=== PATIENT | male | born 1940 | race Two or more races ===

== ENCOUNTER 2024-04-26 13:33 | Inpatient (IN) | payer OTHER ==
[~2024-04-26] VITALS: Ht 170.2 cm; Wt 72.5 kg
--- NOTE | 2024-04-26 14:09 | ECG ---
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
[2024-04-26 14:18] LABS: Hematocrit 43.9 % (41.0-53.0); Hemoglobin 14.9 g/dL (13.5-17.5); Mean Corpuscular Hemoglobin 30.4 pg (28.0-32.0); Mean Corpuscular Hgb Conc. 33.8 g/dL (32.0-36.0); Platelet Count (auto) 147 10^3/uL (140-450); Red Blood Cells 4.88 10^6/uL (4.5-5.90); Red Cell Distribution Width 13.7 % (11.8-14.3); White Blood Cell 6.9 10^3/uL (4.4-10.8)
--- NOTE | 2024-04-26 14:20 | DVH ---
CLINICAL INFORMATION: 83 years old, Male; altered mental status. TECHNIQUE: Single AP portable chest radiograph was obtained. COMPARISON: None FINDINGS: Lungs: Scattered areas of subsegmental atelectasis. No dense focal consolidation visualized. Cardiac: Heart size is within normal limits. Pulmonary vasculature: Unremarkable. Mediastinum/erwin: Unremarkable. Bones: No acute osseous abnormality identified. Other: No other significant findings. IMPRESSION: No evidence of acute disease in the chest.
[2024-04-26 14:38] LABS: Alanine Aminotransferase 14 U/L (7-40); Albumin 4.3 g/dL (3.2-4.8); Alkaline Phosphatase 72 U/L (46-116); Anion Gap 6 (5-15); Aspartate Aminotransferase 16 U/L (13-40); BUN/Creatinine Ratio 15.3 (10.0-20.0); Bilirubin, Total 0.5 mg/dL (0.2-1.0); Blood Urea Nitrogen 19 mg/dL (9-23); Calcium 9.7 mg/dL (8.7-10.4); Carbon Dioxide 28 mmol/L (20-31); Glucose 102 mg/dL (74-106); Potassium 4.2 mmol/L (3.5-5.1); Sodium 142 mmol/L (136-145)
[2024-04-26 14:41] LABS: Chloride 108 mmol/L (98-107)
[2024-04-26 14:45] LABS: Band Neutrophils % (manual) 0; Basophils % (manual) 0 (0.0-2.0); Blast Cells 0; Eosinophils % (manual) 0 (0-7); Metamyelocytes % 0; Myelocytes % 0; Promyelocytes % 0; Reactive Lymphocytes 0
[2024-04-26 15:56] LABS: Urine Bacteria None Seen /hpf (None Seen); Urine WBC None Seen /hpf (0 - 3)
--- NOTE | 2024-04-26 16:00 | DVH ---
CLINICAL INFORMATION: 83 years old, Male; altered mental status. Headache. TECHNIQUE: Axial imaging was obtained through the brain without contrast. Coronal and sagittal refor matted images were obtained, reviewed, and stored. Images were reviewed in brain and bone windows. A ll CT scans at this medical facility are performed using dose modulation techniques as appropriate to a performed exam including the following: Automated exposure control was utilized; adjustment of the MA and/or KV according to patient size; and use of iterative reconstruction technique. CTDIvol = 57.92 mGy DLP = 1140.09 mGy-cm COMPARISON: None FINDINGS: There is no acute intracranial hemorrhage or extraaxial fluid collection. No mass effect o r midline shift. Scattered areas of hypoattenuation are seen in the periventricular and subcortical white matter, which are nonspecific but most likely sequelae of small vessel ischemic disease. The calvarium is unremarkable. [id number] mucosal thickening in the paranasal sinuses. Mastoid air cells are clear. IMPRESSION: 1. No CT evidence of acute intracranial abnormality. 2. Nonacute findings as described above.
[2024-04-26 16:09] LABS: Lymphocytes % (manual) 29 (10.0-50.0); Monocytes % (manual) 17 (0-12); Platelet Estimate Adequate
[2024-04-26 16:31] LABS: Urine Blood Negative /uL (Negative); Urine Clarity Clear (Clear); Urine Color Light-Yellow (Yellow); Urine Protein, UAD Negative (Negative); Urine Specific Gravity 1.013 (1.001-1.035); Urine Squamous Epithelial Cell None Seen /hpf (<5); Urine Urobilinogen Normal (Negative)
--- NOTE | 2024-04-26 19:16 | ED.PDOC ---
History of Present Illness HPI Comments 83 y/o M, with a known Hx of HTN and thyroid disease, is BIBA for c/o ALOC, today. Per EMS report, patient's spouse called after finding the patient altered, today, after being lethargic and weak for 1x week. Patient was commented to have been alert to name and date of and found with a blood glucose of 157 by EMS staff on scene. He has no additional reported associated symptoms, currently, with exception on still being altered by EMS. Chief Complaint: ALOC Time Seen by MD: 13:42 Reviewed Notes: Nurses Notes, Medications, Allergies Allergies: Coded Allergies: NO KNOWN ALLERGIES (Unverified , 04/26/24) Information Source: Emergency Med Personnel Mode of Arrival: EMS Severity: Moderate Timing: Days Duration: Since onset Prehospital treatment: 12 Lead EKG, Accucheck (157), [place] Past Medical History PAST MEDICAL HISTORY: HTN, Thyroid Surgical History: Unknown, Unobtainable Family History Family History: Unknown, Unobtainable Social History Smoker: Unknown, Unobtainable Alcohol: Unknown, Unobtainable Drugs: Unknown, Unobtainable Lives In: Home Neurological: reports: others (ALOC) All Other Systems: Reviewed and Negative (negative unless otherwise stated above or in HPI) Physical Exam General Appearance: Other (Chronically ill-appearing) HEENT: NOT DONE Neck: NOT DONE Respiratory: Other (Crackles bilaterally) Cardiovascular: Tachycardia Breast Exam: Deferred Gastrointestinal: Non Tender Genitalia: Deferred Pelvic: Deferred Rectal: Deferred Extremities: Non-tender Neurologic: Disoriented Cerebellar Function: NOT DONE Reflexes: NOT DONE Skin: Dry, Normal Color, Warm Lymphatic: No Adenopathy Was a procedure done? Was a procedure done?: No EKG EKG : Pulse Rate (adult): 70 [place]: Normal Cardiac Rhythm: NSR, PAC's Block: None Hypertrophy: LVH ST: Normal Differential Dx Considerations may include: encephalopathy, electrolyte imbalance, dehydration, UTI X-Ray, Labs, Meds, VS Vital Signs Date Time Temp Pulse Resp B/P (MAP) Pulse Ox O2 Delivery O2 Flow Rate FiO2 04/26/24 19:16 70 04/26/24 18:09 141/69 (93) 04/26/24 14:16 Room Air* 0 21 04/26/24 14:15 98.1 67 19 150/86 (107) 95 98.1 04/26/24 14:08 70 04/26/24 13:35 97.9 65 18 131/90 (104) 98 Lab Test 04/26/24 15:45 04/26/24 14:51 04/26/24 13:57 Range/Units Urine Color Light-yellow Yellow Urine Clarity Clear Clear Urine pH 6.0 5.0-9.0 Urine Specific [place] 1.013 1.001-1.035 Urine Protein Negative Negative Urine Ketones Negative Negative Urine Blood Negative Negative /uL Urine Nitrite Negative Negative Urine Bilirubin Negative Negative Urine Urobilinogen Normal Negative mg/dL Urine Leukocyte Esterase Negative Negative /uL Urine RBC <1 0 - 3 /hpf Urine WBC None seen 0 - 3 /hpf Urine Squamous Epithelial Cells None seen <5 /hpf Urine Bacteria None seen None Seen /hpf Urine Glucose Normal Normal mg/dL Troponin I High Sensitivity 7 7 </=54 ng/L White Blood Count 6.9 4.4-10.8 10^3/uL Red Blood Count 4.88 4.5-5.90 10^6/uL Hemoglobin 14.9 13.5-17.5 g/dL Hematocrit 43.9 41.0-53.0 % Mean Corpuscular Volume 90.0 80.0-100.0 fL Mean Corpuscular Hemoglobin 30.4 28.0-32.0 pg Mean Corpuscular Hemoglobin Concent 33.8 32.0-36.0 g/dL Red Cell Distribution Width 13.7 11.8-14.3 % Platelet Count 147 140-450 10^3/uL Mean Platelet Volume 9.7 6.9-10.8 fL Neutrophils (%) (Auto) 37.0-80.0 % Lymphocytes (%) (Auto) 10.0-50.0 % Monocytes (%) (Auto) 0.0-12.0 % Basophils (%) (Auto) 0.0-2.0 % Neutrophils # (Auto) 1.6-8.6 10 ^3/uL Lymphocytes # (Auto) 0.4-5.4 10 ^3/uL Monocytes # (Auto) 0-1.3 10 ^3/uL Differential Total Cells Counted 100.0 100 Neutrophils % (Manual) 54 37.0-80.0 Band Neutrophils % (Manual) 0 Lymphocytes % (Manual) 29 10.0-50.0 Monocytes % (Manual) 17 H 0-12 Eosinophils % (Manual) 0 0-7 Basophils % (Manual) 0 0.0-2.0 Metamyelocytes % (manual) 0 Myelocytes % (Manual) 0 Promyelocytes % (Manual) 0 Blast Cells % (Manual) 0 Reactive Lymphocytes 0 Platelet Estimate Adequate Sodium Level 142 136-145 mmol/L Potassium Level 4.2 3.5-5.1 mmol/L Chloride Level 108 H 98-107 mmol/L Carbon Dioxide Level 28 20-31 mmol/L Anion Gap 6 5-15 Blood Urea Nitrogen 19 9-23 mg/dL Creatinine 1.24 0.700-1.30 mg/dL Glomerular Filtration Rate Calc 58 >90 mL/min BUN/Creatinine Ratio 15.3 10.0-20.0 Serum Glucose 102 74-106 mg/dL Calcium Level 9.7 8.7-10.4 mg/dL Total Bilirubin 0.5 0.2-1.0 mg/dL Aspartate Amino Transferase (AST) 16 13-40 U/L Alanine Aminotransferase (ALT) 14 7-40 U/L Alkaline Phosphatase 72 46-116 U/L Total Protein 7.0 5.7-8.2 g/dL Albumin 4.3 3.2-4.8 g/dL [place] [address] Ph: [phone] DIAGNOSTIC IMAGING Diagnostic Imaging Report : [id number] Signed PATIENT: BELTRAN MELARA ACCT: [id number] UNIT: [id number] : 1940 LOC: ER ROOM / BED: / AGE / SEX: 83 / M ADM STATUS: REG ER SERVICE 1342 ORDERING PHYSICIAN: ANURAG ENRIQUEZ MD PROCEDURE(s): HWOCT - HEAD WITHOUT CONTRAST REASON: [facility] ORDER NUMBER(s): [id number], ACCESSION NUMBER(s): [id number] CLINICAL INFORMATION: 83 years old, Male; altered mental status. Headache. TECHNIQUE: Axial imaging was obtained through the brain without contrast. Coronal and sagittal reformatted images were obtained, reviewed, and stored. Images were reviewed in brain and bone windows. All CT scans at this medical facility are performed using dose modulation techniques as appropriate to a performed exam including the following: Automated exposure control was utilized; adjustment of the MA and/or KV according to patient size; and use of iterative reconstruction technique. CTDIvol = 57.92 mGy DLP = 1140.09 mGy-cm COMPARISON: None FINDINGS: There is no acute intracranial hemorrhage or extraaxial fluid collection. No mass effect or midline shift. Scattered areas of hypoattenuation are seen in the periventricular and subcortical white matter, which are nonspecific but most likely sequelae of small vessel ischemic disease. The calvarium is unremarkable. Oixp-cg-[id number] mucosal thickening in the paranasal sinuses. Mastoid air cells are clear. IMPRESSION: 1. No CT evidence of acute intracranial abnormality. 2. Nonacute findings as described above. ATED BY: VINOD CARSON DO DICTATED DATE/TIME: 04/26/24 1558 SIGNED BY: VINOD CARSON DO SIGNED DATE/TIME: 04/26/24 155 CC: [place] [address] Ph: [phone] DIAGNOSTIC IMAGING Diagnostic Imaging Report : [id number] Signed PATIENT: BLETRAN MELARA ACCT: [id number] UNIT: [id number] : 1940 LOC: ER ROOM / BED: / AGE / SEX: 83 / M ADM STATUS: REG ER SERVICE 134 ORDERING PHYSICIAN: ANURAG ENRIQUEZ MD PROCEDURE(s): CXRP - CHEST PORTABLE REASON: [facility] ORDER NUMBER(s): [id number], ACCESSION NUMBER(s): [id number] CLINICAL INFORMATION: 83 years old, Male; altered mental status. TECHNIQUE: Single AP portable chest radiograph was obtained. COMPARISON: None FINDINGS: Lungs: Scattered areas of subsegmental atelectasis. No dense focal consolidation visualized. Cardiac: Heart size is within normal limits. Pulmonary vasculature: Unremarkable. Mediastinum/erwin: Unremarkable. Bones: No acute osseous abnormality identified. Other: No other significant findings. IMPRESSION: No evidence of acute disease in the chest. ATED BY: VINOD CARSON DO DICTATED DATE/TIME: 04/26/24 1418 SIGNED BY: VINOD CARSON DO SIGNED DATE/TIME: 04/26/24 1418 CC: Time of 1ST Reevaluation: 14:22 Reevaluation 1ST: Unchanged Patient Education/Counseling: Other (patient is altered ) Family Education/Counseling: Diagnosis, Treatment Additional Information - I reviewed the following notes from patient's past medical encounters: - The following tests were ordered, and results were reviewed by me: TROPONIN, CMP, CBC, UA, EKG, CXR, CT HEAD - Additional information was gathered from interviewing the following independent Historian: EMT - I reviewed and agreed with the following test results read by other provider: CXR, CT HEAD - I discussed treatments and results with medical personnel and: family Departure 1 Departure Time of Disposition: 20:52 (Patient with a worsening altered mental status. CT and labs are benign. We will admit patient for further workup) Impression: Primary Impression: Metabolic encephalopathy Additional Impression: Generalized weakness Disposition: ADMITTED INPATIENT Admit to: Med Surg Condition: Serious Critical Care Note Critical Care Time?: No Stability Stability form required: No Heart Score Heart Score: Heart Score Response (Comments) Value History N/A 0 EKG N/A 0 Age N/A 0 Risk Factors N/A 0 Troponin N/A 0 Total 0 I personally scribed for ANURAG ENRIQUEZ MD ([email or web address]) on 04/26/24 at 19:16. Electronically submitted by Alban Valle [email or web address]). ANURAG ENRIQUEZ MD Apr 26, 2024 19:16
[2024-04-26 20:15] VITALS: PULSE 63; RESP 18; O2SAT 86
[2024-04-27] VITALS (8 sets, daily range): BP systolic 156–183; BP diastolic 84–96; PULSE 57–68; RESP 16–18; TEMP 97.6–98.8; O2SAT 96–99
[2024-04-27] MEDS ORDERED: ACETAMINOPHEN 325 MG TAB PO PRN (01:15)
--- NOTE | 2024-04-27 01:17 | DVHHP2 ---
Admitting Diagnosis: metabolic encephalopathy, ALOC, Generalized weakness History of Present Illness History Source: Patient Exam Limitations: Other (confused ) HPI Mr. Javier Borrero is an 83 yo male , with a known history of hypertension and thyroid disease, presents with a chief complaint of ALOC, today. Per ED notes patient's spouse called 911 after finding the patient altered yesterday, after being lethargic and weak for 1x week. Patient alert and oriented x2 denies any headaches, dizziness, blurry vision, head trauma, chest pain, dyspnea. Patient admitted for further evaluation. Home Meds Reported Medications Pantoprazole Sodium Sesquihydr (Protonix) 40 Mg Tab, 40 MG PO DAILY, #30 TAB 04/27/24 Levothyroxine Sodium (Levothyroxine Sodium) 50 Mcg Tab, 50 MCG PO QAM, TAB 04/27/24 Simvastatin (Simvastatin) 10 Mg Tab, 5 MG PO HS for 30 Days, MG 04/27/24 Finasteride (Finasteride) 5 Mg Tab, 5 MG PO QAM for 30 Days, MG 04/27/24 Losartan Potassium (Losartan Potassium) 50 Mg Tab, 50 MG PO BID for 30 Days, MG 04/27/24 Discontinued Reported Medications Levothyroxine Sodium (Levothyroxine Sodium) 25 Mcg Tab, 25 MCG PO QAM, MCG 04/27/24 Past Medical History Cardiac: HTN Pulmonary: No pertinent Hx Central Nervous System: No pertinent Hx GI: No pertinent Hx Hemotology/Oncology: No pertinent Hx Hepatobiliary: No pertinent Hx Psychiatric: No pertinent Hx Musculoskeletal: No pertinent Hx Rheumotologic: No pertinent Hx Infectious Disease: No peritnent Hx ENT: No pertinent Hx Renal/: No pertinent Hx Endocrine: Hypothyroidism Dermatology: No pertinent Hx Smoker: No Hx (Negative) Alocohol: None Drugs: None Lives with: With family ( Ai ) Domestic Violence: Neg Review of Systems Constitutional: No symptom reported Ears, Nose, & Throat: No symptom reported Eyes: No symptom reported Pulmonary/Respiratory: No symptom reported Cardiovascular: No symptom reported Gastrointestinal: No symptom reported Genitourinary: No symptom reported Musculoskeletal: No symptom reported Skin: No symptom reported Psychiatric: No symptom reported Endocrine: No symptom reported Hemotologic/Lymphatic: No symptom reported H&P Exam Vital Signs Vital Signs Date Time Temp Pulse Resp B/P (MAP) Pulse Ox O2 Delivery O2 Flow Rate FiO2 04/27/24 00:00 61 04/26/24 20:15 18 86 Room Air* 0 21 04/26/24 20:00 98.1 148/84 (105) 98.1 General Appeara: Well developed, Well nourished, Normal Appearance Head Exam: Normal inspection Neck Exam: Normal inspection, Non-tender, Normal alignment Eye Exam: bilateral eye Normal inspection, bilateral eye PERRL, bilateral eye EOMI Ear Exam: bilateral ear Auricle normal Nasal Exam: Normal inspection Mouth: Normal Inspection Pulmonary/Respiratory: Normal inspection, Normal breath sounds, Chest non- tender, Lungs clear Cardiovascular/Chest: Normal inspection, Regular rate, Normal Rhythm Peripheral Pulses: 2+ dorsalis pedis (R), 2+ dorsalis pedis (L), 2+ Radial (R), 2+ Radial (L) Abdominal Exam: Normal bowel sounds, Soft, No tenderness Rectal Exam: Deferred Back Exam: Normal inspection Male Genital 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: Normal hearing, Normal speech, PERRL Motor/Sensory: Normal sensory function, Normal motor function Neuro/Mental St: Alert, Oriented (x2) Appearance: Appropriate appearance, Memory impairment Eye contact/ Speech: Cooperative, Good eye contact, Normal speech Thoughts/Psych: Normal thought pattern Skin Exam: Normal inspection, Normal color, Warm/dry Labs/Xrays Labs Test 04/26/24 15:45 04/26/24 14:51 04/26/24 13:57 Range/Units Urine Color Light-yellow Yellow Urine Clarity Clear Clear Urine pH 6.0 5.0-9.0 Urine Specific [place] 1.013 1.001-1.035 Urine Protein Negative Negative Urine Ketones Negative Negative Urine Blood Negative Negative /uL Urine Nitrite Negative Negative Urine Bilirubin Negative Negative Urine Urobilinogen Normal Negative mg/dL Urine Leukocyte Esterase Negative Negative /uL Urine RBC <1 0 - 3 /hpf Urine WBC None seen 0 - 3 /hpf Urine Squamous Epithelial Cells None seen <5 /hpf Urine Bacteria None seen None Seen /hpf Urine Glucose Normal Normal mg/dL Troponin I High Sensitivity 7 </=54 ng/L White Blood Count 6.9 4.4-10.8 10^3/uL Red Blood Count 4.88 4.5-5.90 10^6/uL Hemoglobin 14.9 13.5-17.5 g/dL Hematocrit 43.9 41.0-53.0 % Mean Corpuscular Volume 90.0 80.0-100.0 fL Mean Corpuscular Hemoglobin 30.4 28.0-32.0 pg Mean Corpuscular Hemoglobin Concent 33.8 32.0-36.0 g/dL Red Cell Distribution Width 13.7 11.8-14.3 % Platelet Count 147 140-450 10^3/uL Mean Platelet Volume 9.7 6.9-10.8 fL Neutrophils (%) (Auto) 37.0-80.0 % Lymphocytes (%) (Auto) 10.0-50.0 % Monocytes (%) (Auto) 0.0-12.0 % Basophils (%) (Auto) 0.0-2.0 % Neutrophils # (Auto) 1.6-8.6 10 ^3/uL Lymphocytes # (Auto) 0.4-5.4 10 ^3/uL Monocytes # (Auto) 0-1.3 10 ^3/uL Differential Total Cells Counted 100.0 100 Neutrophils % (Manual) 54 37.0-80.0 Band Neutrophils % (Manual) 0 Lymphocytes % (Manual) 29 10.0-50.0 Monocytes % (Manual) 17 H 0-12 Eosinophils % (Manual) 0 0-7 Basophils % (Manual) 0 0.0-2.0 Metamyelocytes % (manual) 0 Myelocytes % (Manual) 0 Promyelocytes % (Manual) 0 Blast Cells % (Manual) 0 Reactive Lymphocytes 0 Platelet Estimate Adequate Sodium Level 142 136-145 mmol/L Potassium Level 4.2 3.5-5.1 mmol/L Chloride Level 108 H 98-107 mmol/L Carbon Dioxide Level 28 20-31 mmol/L Anion Gap 6 5-15 Blood Urea Nitrogen 19 9-23 mg/dL Creatinine 1.24 0.700-1.30 mg/dL Glomerular Filtration Rate Calc 58 >90 mL/min BUN/Creatinine Ratio 15.3 10.0-20.0 Serum Glucose 102 74-106 mg/dL Calcium Level 9.7 8.7-10.4 mg/dL Total Bilirubin 0.5 0.2-1.0 mg/dL Aspartate Amino Transferase (AST) 16 13-40 U/L Alanine Aminotransferase (ALT) 14 7-40 U/L Alkaline Phosphatase 72 46-116 U/L Total Protein 7.0 5.7-8.2 g/dL Albumin 4.3 3.2-4.8 g/dL Assessment/Plan Problem List: (1) Altered mental status (2) Metabolic encephalopathy (3) Generalized weakness Plan 83 yo male with a history of thyroid disease, and hypertension presents to the ospital with altered mental status and generalized weakness. 1. Altered mental status 2. Metabolic encephalopathy 3. generalized weakness PLAN Admit Telemetry Cardiology consultation, 2D echo, ASA MRI Brain wo PT evaluation Fall Precautions Vitamin B 12, Ammonia level Discussed all above with patient who verbalized agreement and understanding of care plan. All questions were answered. Discussed assessment and care plan with supervising MD. Plan discussed with: Patient, Other Code Visit Code Visit Total Time (mins): 45 Additional Comments Additional Comments Additional Comments Patient is seen and evaluated by me this afternoon. Patient's chart is reviewed and discussed with the nurse practitioner. Patient is evaluated and admitted by nurse practitioner this morning. I agree with her evaluation, documentation, assessment and care plan as outlined. JUDE MALIN Apr 27, 2024 01:17 FIDEL ALAN MD Apr 27, 2024 16:42
[2024-04-27] MEDS: hydrALAZINE HCL 20 MG/ML VL IV PRN (04:56)
[2024-04-27] MEDS: ASPirin 81 mg TAB PO SCH (09:19)
[2024-04-27] MEDS: FAMOTIDINE 20 MG TAB PO SCH (09:20)
[2024-04-27] MEDS ORDERED: SIMV10TA20 PO (09:50)
[2024-04-27] MEDS ORDERED: FINA5TAB4 PO (09:50)
[2024-04-27] MEDS ORDERED: LEVO25TA6 PO (09:50)
[2024-04-27] MEDS ORDERED: LOSA-534 PO (09:50)
[2024-04-27] MEDS: OPTISON 3ml Vial for INJ IV ONE (11:00)
[2024-04-27] MEDS ORDERED: PANT40TA2 PO (11:48)
[2024-04-27] MEDS ORDERED: LEVO50TA7 PO (11:48)
--- NOTE | 2024-04-27 13:05 | DVH ---
PROCEDURE: MRI BRAIN HEAD WO CONTRAST INDICATION: altered EXAM DATE: 04/27/2024 12:26 PM COMPARISON: CT study of 04/26/2024 TECHNIQUE: MRI of the brain without intravenous contrast. FINDINGS: Diffusion weighted images of the brain demonstrate restricted diffusion in the thalamus on the left s rachana on axial image 12, series 6. Corresponding ADC map demonstrates subtle diminished signal axial im age 12, series 7. Findings consistent with a very small SUBCENTIMETER acute lacunar infarct. Focal ol d ischemic changes seen in the ponds to the right of midline. No intracranial hemorrhage or extra-axi al fluid collections. No subdural hematoma. No hydrocephalus. Cavernous sinuses are symmetric and unr emarkable. Orbits are normal. No fluid in the mastoid air cells. Calvarium is intact. Normal pituitary gland. IMPRESSION: 1. Acute 9 mm left thalamic lacunar infarct. 2. Small focal area of old schema in the right side of the ponds. 3. Mild guadarrama sinusitis, chronic in nature.
[2024-04-27] MEDS: CLOPIDOGREL BISULFATE 75 MG TAB PO ONE (14:15)
[2024-04-27 17:31] LABS: Triglycerides 81 mg/dL (< 150)
[2024-04-27 17:33] LABS: HDL Cholesterol 55 mg/dL (40-59)
[2024-04-27 17:34] LABS: Cholesterol 158 mg/dL (< 200)
[2024-04-27 17:38] LABS: LDL Cholesterol 101 mg/dL (< 100)
[2024-04-27] MEDS: ATORVASTATIN 20 MG TAB PO SCH (21:47)
[2024-04-27] MEDS: LOSARTAN POTASSIUM 50 MG TAB PO SCH (21:47)
[2024-04-27] MEDS ORDERED: IOHEXOL 350 MG/ML 100ML IJ ONE (22:45)
[2024-04-28] VITALS (8 sets, daily range): BP systolic 122–177; BP diastolic 67–103; PULSE 51–98; RESP 14–20; TEMP 97.7–98.5; O2SAT 96–98
[2024-04-28] MEDS: LEVOTHYROXINE SODIUM 50 MCG TAB PO SCH (05:57)
[2024-04-28] MEDS: PANTOPRAZOLE 40 MG TAB PO SCH (05:57)
--- NOTE | 2024-04-28 09:00 | DVH ---
CLINICAL INFORMATION: 83 years old, Male; stroke. TECHNIQUE: Axial noncontrast CT images of the head were obtained. Subsequently, axial CTA images of t he head and neck were obtained after the uneventful administration of 100 mL Omnipaque 350 IV contras t. Coronal and sagittal reformatted images and MIP images were obtained, reviewed, and stored. Measur ements of carotid stenosis are made per NASCET criteria. All CT scans at this medical facility are pe rformed using dose modulation techniques as appropriate to a performed exam including the following: Automated exposure control was utilized; adjustment of the MA and/or KV according to patient size; an d use of iterative reconstruction technique. CTDIvol = 0.07, 0.07, 54.03, 25.88, 22.38 mGy DLP = 1702.03 mGy-cm COMPARISON: None FINDINGS: NONCONTRAST CT HEAD: No acute intracranial hemorrhage. No mass effect or midline shift. Ventricles, sulci, and basal cisterns are within normal limits for age. Scattered areas of hypoattenuation are se en in the periventricular and subcortical white matter, which are nonspecific but most likely sequela e of small vessel ischemic disease. Vague small focus of hypoattenuation in the anterior aspect of th e left thalamus from the recent lacunar infarct. Mild mucosal thickening and partial opacification of the paranasal sinuses. Mastoid air cells are clear. Calvarium is unremarkable. CTA HEAD: origin of the left posterior cerebral artery incidentally noted. Posterior cerebral a rteries, basilar artery, and intracranial segments of the distal vertebral arteries are otherwise nor mal in caliber and course with no evidence of aneurysm, large vessel occlusion, significant stenosis, or vascular malformation. There is moderate narrowing at the proximal aspect of the M2 segment of th e left middle cerebral artery (series 5 images 189-191 and correlating with series 604 images 38-40 a nd series 607 images 76-78). Right MCA is patent with no evidence of large vessel occlusion, focal st enosis, or aneurysm. The anterior cerebral arteries and intracranial segments of the distal internal carotid arteries are normal in caliber and course with no evidence of aneurysm, large vessel occlusi on, significant stenosis, or vascular malformation. CTA NECK: Normal configuration of the aortic arch with patent origins of the brachiocephalic artery, left common carotid artery, and left subclavian artery. Subclavian arteries are patent with no signif icant stenosis. Mild calcified plaque of the right carotid bifurcation without significant stenosis. The bilateral common carotid, internal carotid, and external carotid arteries are otherwise patent wi th no significant stenosis or evidence of dissection. Vertebral arteries are patent with no significa nt stenosis or evidence of dissection. IMPRESSION: 1. No acute intracranial hemorrhage. 2. Vague area of hypoattenuation in the anterior aspect of the left thalamus corresponding to the loc ation of the acute / subacute lacunar infarct seen on MRI. 3. Moderate narrowing of the proximal M2 segment of the left MCA. Otherwise no evidence of aneurysm, large vessel occlusion, or vascular malformation identified on CTA head exam. 4. CTA neck demonstrates no evidence of carotid or vertebral dissection or significant stenosis. 5. Additional findings as detailed above.
[2024-04-28] MEDS: FINASTERIDE 5 MG TAB PO SCH (09:45)
[2024-04-28] MEDS: CLOPIDOGREL BISULFATE 75 MG TAB PO SCH (09:45)
--- NOTE | 2024-04-28 17:17 | DVHPN2 ---
Progress Note - Dictate Date Seen: Apr 28, 2024 Medical Necessity Reason Pt with a Central, PICC or Fol: No Subjective Mentation is normal today. His visited him today. CT angiogram of the head and neck does not show any acute significant pathology. Patient feels better. Ambulating on his own. vital signs Vital Sign Date Time Temp Pulse Resp B/P (MAP) Pulse Ox O2 Delivery O2 Flow Rate FiO2 04/28/24 16:55 171/105 04/28/24 04:41 97.7 96 17 98 97.7 04/27/24 20:00 Room Air* 0 21 Total Intake and Output 04/27/24 04/27/24 04/28/24 15:00 23:00 07:00 Intake Total 1320 ml 444 ml Output Total 1000 ml 4 ml Balance 320 ml 440 ml medications Current Medications Medications Dose Ordered Sig/Jose Route Start Time Stop Time Status Last Admin Dose Admin Ondansetron HCl 4 mg Q6HPRN PRN IV 04/27/24 01:15 Aspirin 81 mg DAILY PO 04/27/24 10:00 04/28/24 09:45 81 MG Acetaminophen 650 mg Q6HPRN PRN PO 04/27/24 01:15 Hydralazine HCl 10 mg Q6HP PRN IV 04/27/24 04:45 04/28/24 16:55 10 MG Clopidogrel Bisulfate 75 mg DAILY PO 04/28/24 10:00 04/28/24 09:45 75 MG Pantoprazole Sodium 40 mg DAILY@0600 PO 04/28/24 06:00 04/28/24 05:57 40 MG Levothyroxine Sodium 50 mcg QAM@0600 PO 04/28/24 06:00 04/28/24 05:57 50 MCG Finasteride 5 mg DAILY PO 04/28/24 10:00 04/28/24 09:45 5 MG Atorvastatin Calcium 40 mg HS PO 04/27/24 22:00 04/27/24 21:47 40 MG Losartan Potassium 50 mg BID PO 04/27/24 22:00 04/28/24 09:45 50 MG Hydrochlorothiazide 12.5 mg BID PO 04/28/24 22:00 objective Alert awake oriented x3. HEENT neck supple no JVD. Heart regular rate and rhythm S1 and S2. Lungs without rales wheezes. Abdomen soft positive bowel sounds. Extremities no edema. Neurologic no focal deficits noted laboratory and microbiology Laboratory Tests 04/26/24 13:57 Test 04/26/24 13:57 Range/Units Serum Glucose 102 74-106 mg/dL Assessment/Plan Continue dual antiplatelet therapy and statin as he is on. We will adjust his blood pressure medication given blood pressure in the high range. Otherwise continue rest of supportive care and treatment monitor him overnight. If he remains stable consider discharge home tomorrow. Discussed with the patient regarding care plan at bedside. Problems(with codes): (1) Generalized weakness (2) Metabolic encephalopathy (3) Lacunar infarct, acute Plan discussed with: Other FIDEL ALAN MD Apr 28, 2024 17:17
[2024-04-28] MEDS: ONDANSETRON HCL 4 MG/2 ML VIAL IV PRN (19:47)
[2024-04-28] MEDS: hydroCHLOROthiazide 25 MG TAB PO SCH (21:21)
[2024-04-29 01:00] VITALS: BP 151/90; PULSE 74; RESP 14; TEMP 98.4; O2SAT 98
[2024-04-29 05:00] VITALS: BP 133/64; PULSE 70; RESP 14; TEMP 98.3; O2SAT 98
[2024-04-29 08:00] VITALS: PULSE 59; PULSE 69; RESP 18; O2SAT 98
[2024-04-29 09:21] VITALS: BP 143/83; PULSE 69; RESP 18; TEMP 97.5; O2SAT 98
[2024-04-29 12:53] VITALS: BP 154/88; PULSE 64; RESP 17; TEMP 97.7; O2SAT 99
[2024-04-29] MEDS ORDERED: LOSA-534 PO (14:47)
[2024-04-29] MEDS ORDERED: LISI20TA56 PO (14:47)
[2024-04-29] MEDS ORDERED: CLOP75TA70 PO (14:47)
[2024-04-29] MEDS ORDERED: HYDR25TA5 PO (14:47)
[2024-04-29] MEDS ORDERED: ASPI-316 PO (14:47)
--- NOTE | 2024-04-29 14:49 | DVHDS2 ---
Discharge Summary Date of Admission Apr 27, 2024 at 01:06 Date of Discharge: Apr 29, 2024 Labs/Diagnostic Data: Laboratory Results Test 04/27/24 17:57 04/27/24 01:24 04/26/24 15:45 04/26/24 14:51 Hemoglobin A1c 5.5 % A1C (<5.7) Ammonia 22 umol/L (11-32) Triglycerides Level 81 mg/dL (< 150) Cholesterol Level 158 mg/dL (< 200) LDL Cholesterol 101 mg/dL (< 100) HDL Cholesterol 55 mg/dL (40-59) Vitamin B12 Level 1314 pg/mL (211-911) Thyroid Stimulating Hormone (TSH) 0.81 uIU/mL (0.55-4.78) Urine Color Light-yellow (Yellow) Urine Clarity Clear (Clear) Urine pH 6.0 (5.0-9.0) Urine Specific [place] 1.013 (1.001-1.035) Urine Protein Negative (Negative) Urine Ketones Negative (Negative) Urine Blood Negative /uL (Negative) Urine Nitrite Negative (Negative) Urine Bilirubin Negative (Negative) Urine Urobilinogen Normal mg/dL (Negative) Urine Leukocyte Esterase Negative /uL (Negative) Urine RBC <1 /hpf (0 - 3) Urine WBC None seen /hpf (0 - 3) Urine Squamous Epithelial Cells None seen /hpf (<5) Urine Bacteria None seen /hpf (None Seen) Urine Glucose Normal mg/dL (Normal) Troponin I High Sensitivity 7 ng/L (</=54) Test 04/26/24 13:57 White Blood Count 6.9 10^3/uL (4.4-10.8) Red Blood Count 4.88 10^6/uL (4.5-5.90) Hemoglobin 14.9 g/dL (13.5-17.5) Hematocrit 43.9 % (41.0-53.0) Mean Corpuscular Volume 90.0 fL (80.0-100.0) Mean Corpuscular Hemoglobin 30.4 pg (28.0-32.0) Mean Corpuscular Hemoglobin Concent 33.8 g/dL (32.0-36.0) Red Cell Distribution Width 13.7 % (11.8-14.3) Platelet Count 147 10^3/uL (140-450) Mean Platelet Volume 9.7 fL (6.9-10.8) Neutrophils (%) (Auto) % (37.0-80.0) Lymphocytes (%) (Auto) % (10.0-50.0) Monocytes (%) (Auto) % (0.0-12.0) Basophils (%) (Auto) % (0.0-2.0) Neutrophils # (Auto) 10 ^3/uL (1.6-8.6) Lymphocytes # (Auto) 10 ^3/uL (0.4-5.4) Monocytes # (Auto) 10 ^3/uL (0-1.3) Differential Total Cells Counted 100.0 (100) Neutrophils % (Manual) 54 (37.0-80.0) Band Neutrophils % (Manual) 0 Lymphocytes % (Manual) 29 (10.0-50.0) Monocytes % (Manual) 17 (0-12) Eosinophils % (Manual) 0 (0-7) Basophils % (Manual) 0 (0.0-2.0) Metamyelocytes % (manual) 0 Myelocytes % (Manual) 0 Promyelocytes % (Manual) 0 Blast Cells % (Manual) 0 Reactive Lymphocytes 0 Platelet Estimate Adequate Sodium Level 142 mmol/L (136-145) Potassium Level 4.2 mmol/L (3.5-5.1) Chloride Level 108 mmol/L (98-107) Carbon Dioxide Level 28 mmol/L (20-31) Anion Gap 6 (5-15) Blood Urea Nitrogen 19 mg/dL (9-23) Creatinine 1.24 mg/dL (0.700-1.30) Glomerular Filtration Rate Calc 58 mL/min (>90) BUN/Creatinine Ratio 15.3 (10.0-20.0) Serum Glucose 102 mg/dL (74-106) Calcium Level 9.7 mg/dL (8.7-10.4) Total Bilirubin 0.5 mg/dL (0.2-1.0) Aspartate Amino Transferase (AST) 16 U/L (13-40) Alanine Aminotransferase (ALT) 14 U/L (7-40) Alkaline Phosphatase 72 U/L (46-116) Total Protein 7.0 g/dL (5.7-8.2) Albumin 4.3 g/dL (3.2-4.8) Other Laboratory Tests 04/26/24 13:57 Brief Hx & Hospital Course: 83 y/o M, with a known Hx of HTN and thyroid disease, is BIBA for c/o ALOC, today. Per EMS report, patient's spouse called after finding the patient altered, today, after being lethargic and weak for 1x week. Patient was commented to have been alert to name and date of and found with a blood glucose of 157 by EMS staff on scene. He has no additional reported associated symptoms, currently, with exception on still being altered by EMS. He is admitted and underwent a further evaluations. His blood pressure has been controlled with adjusting BP medications. Patient's VT did confirm a thalamic stroke. CT angiogram of the head and neck did not show any significant stenosis. Patient and his counseled and educated regarding aggressive risk factor modification including good blood pressure control to prevent secondary strokes. Patient started on antiplatelet therapy and statin. Patient's mentation is back to baseline normal status. His blood pressure is improved. He is feeling better. Therefore it is felt he could be safely discharged home with close outpatient follow up with the PCP and neurologist as mentioned. I have talked with the patient as well as his over the phone regarding her hospital diagnosis, treatment he received, discharge medications, discharge instructions and follow-up plan of care. They have verbalized understanding of these and agree with the discharge care plan. Consults/Reason for consult CT angio of head and neck IMPRESSION: 1. No acute intracranial hemorrhage. 2. Vague area of hypoattenuation in the anterior aspect of the left thalamus corresponding to the location of the acute / subacute lacunar infarct seen on MRI. 3. Moderate narrowing of the proximal M2 segment of the left MCA. Otherwise no evidence of aneurysm, large vessel occlusion, or vascular malformation identified on CTA head exam. 4. CTA neck demonstrates no evidence of carotid or vertebral dissection or significant stenosis. 5. Additional findings as detailed above. Operations or Procedures PROCEDURE: MRI BRAIN HEAD WO CONTRAST INDICATION: altered EXAM DATE: 04/27/2024 12:26 PM COMPARISON: CT study of 04/26/2024 TECHNIQUE: MRI of the brain without intravenous contrast. FINDINGS: Diffusion weighted images of the brain demonstrate restricted diffusion in the thalamus on the left side on axial image 12, series 6. Corresponding ADC map demonstrates subtle diminished signal axial image 12, series 7. Findings consistent with a very small SUBCENTIMETER acute lacunar infarct. Focal old ischemic changes seen in the ponds to the right of midline. No intracranial hemorrhage or extra-axial fluid collections. No subdural hematoma. No hydrocephalus. Cavernous sinuses are symmetric and unremarkable. Orbits are normal. No fluid in the mastoid air cells. Calvarium is intact. Normal pituitary gland. IMPRESSION: 1. Acute 9 mm left thalamic lacunar infarct. 2. Small focal area of old schema in the right side of the ponds. 3. Mild guadarrama sinusitis, chronic in nature. Condition at Discharge: Stable Final Diagnosis/Problems List Acute thalamic infarction, hypertension Problems List: (1) Altered mental status (2) Lacunar infarct, acute (3) Generalized weakness Status: Acute Discharge Disposition: Home Discharge Instruct/Medications Diet: Consistent carbohydrate, Cardiac 2g Na,low cholest Activity: No Restrictions, As Tolerated Follow Up/Referral: Dr. Penelope Arauz neurologist after two weeks stroke follow up. Primary care physician next week for blood pressure and stroke management Medications: As prescribed and home medications per discharge list New Medications: Aspirin (Aspirin EC Adult Low Dose) 81 Mg Tab 81 MG PO DAILY, #120 TAB Clopidogrel Bisulfate (Clopidogrel) 75 Mg Tab 1 TAB PO DAILY, #21 TAB Hctz (Hydrochlorothiazide) 25 Mg Tab 25 MG PO DAILY@BREAKFAST, #60 TAB Lisinopril (Lisinopril) 20 Mg Tab 1 TAB PO DAILY, #90 TAB 1 Refill Continued Medications: Finasteride (Finasteride) 5 Mg Tab 5 MG PO QAM for 30 Days, MG Levothyroxine Sodium (Levothyroxine Sodium) 50 Mcg Tab 50 MCG PO QAM, TAB Losartan Potassium (Losartan Potassium) 50 Mg Tab 50 MG PO BID, #120 MG (This prescription has been renewed) Pantoprazole Sodium Sesquihydr (Protonix) 40 Mg Tab 40 MG PO DAILY, #30 TAB Discontinued Medications: Simvastatin (Simvastatin) 10 Mg Tab 5 MG PO HS for 30 Days, MG Discharge Statement: "Patient was advised to return to the ER or call 911 if any headaches, dizziness, shortness of breath, chest pain, abdominal pain, bleeding, fevers, or worsening of medical condition. Patient was counseled about treatment plan, medications, possible side effects, patientverbalized understanding. All questions were answered to the best of my ability. This discharge took greater then 30 minutes in planning, reviewing documentation, counseling the patient, and discussing with other team members." ASSESSMENT ASSESSMENT Assessment Acute thalamic infarction, hypertension FIDEL ALAN MD Apr 29, 2024 14:49
[2024-04-29 14:58] VITALS: BP 140/80; PULSE 64; RESP 17; TEMP 97.7; O2SAT 99
== END 2024-04-29 16:37 | disposition home or self-care (01) | DRG 64 ==
LOC: ER 13:33 → EDBD 13:33 → TELE 04-27 01:06 → TELE-CENTR 04-27 01:10
PROVIDERS: ADMIT Nurse Practitioner Family; ATTEND Nurse Practitioner Family
DX: I63.9 Cerebral infarction, unspecified (principal); G93.41 Metabolic encephalopathy; I10 Essential (primary) hypertension; E03.9 Hypothyroidism, unspecified; Z79.899 Other long term (current) drug therapy; I16.0 Hypertensive urgency
CPT/HCPCS: 36415; 70450; 70496; 70551; 71045; 80053; 80061; 81001; 82140; 82607; 83036; 83695; 84443; 84484; 85007; 85027; 93005; 93306; 97110; 97116; 97163; 97530; G0378; J2405; Q9956

== ENCOUNTER 2024-06-02 01:23 | Inpatient (IN) | payer OTHER ==
[~2024-06-02] VITALS: Ht 177.8 cm; Wt 161.2 kg
[~2024-06-02 01:23] MED LIST: ASPI-316 PO; CLOP75TA70 PO; FINA5TAB4 PO; HYDR25TA5 PO; LEVO50TA7 PO; LISI20TA56 PO; LOSA-534 PO; PANT40TA2 PO
--- NOTE | 2024-06-02 01:48 | ED.PDOC ---
General HPI Comments HPI: Poor Historian. History obtained from the patient and the . 83-year-old male presents to emergency department for difficulty urinating. Patient underwent a right inguinal hernia repair today and a surgical outpatient procedure by Dr. Dodd and was discharged home. He was instructed that if he is unable to urinate to go to urgent care to get a Shah catheter. He was unable to void urine for 3 hours. He then went to urgent care where they attempted a traumatic Shah catheter insertion where there was noted bleeding according to the . They were instructed of the urgent care that if he does not produce any urine that he should go to the nearest ER for further evaluation and treatment. Patient has not been able to void any urine and there is increased blood in his Shah catheter leg bag and noted a clotted blood in the Shah tube itself. Patient has some discomfort in his suprapubic area. Patient received heparin today. Patient was sent home with antibiotics. Past Medical History: Hypertension hyperlipidemia CVA, CHF, enlarged prostate. Past Surgical History: Tonsillectomy, right inguinal hernia repair REVIEW OF SYSTEMS: CONSTITUTIONAL: Denies acute: fever, diaphoresis, chills, HEAD: Denies acute: headache, photophobia Eyes: Denies acute: Double vision, vision loss, eye pain, eye discharge. EARS: Denies acute: tinnitus, hearing loss, ear discharge, ear pain, THROAT: Denies acute: sore throat, swelling, difficulty swallowing , pain with swallowing, change in voice. NECK: Denies acute: neck pain, neck swelling, stiff neck. HEART: Denies acute : chest pain, palpitations, LUNGS: Denies acute: SOB, wheezing, cough, hemoptysis ABDOMEN: Denies acute: Nausea, Vomiting, diarrhea, melena , hematemesis, hematochezia SKIN: Denies acute: rash, redness, lesions, itchiness. EXTREMITIES: Denies acute: calf pain, numbness, tingling, weakness, denies pain in extremity. Denies acute: Low back pain. Neuro: Denies acute: focal neurological deficit, motor or sensory focal neurological deficit, tremors, seizure like activity, confusion, dizziness, change in mental status, loss of bowel or bladder function, cauda equina like symptoms. : Denies acute: flank pain, PSYCH: Denies acute: hallucination, suicidal ideation, homicidal ideation. PHYSICAL EXAM: General: Moderate acute distress, awake and alert. Head: normocephalic, atraumatic. Neck: supple, trachea is midline, no swelling. Throat: Normal phonation. Eyes:, no erythema, no purulent discharge, no proptosis, no icterus. Heart: regular rate, regular rhythm, no significant murmur appreciated. Lungs: no apparent respiratory distress, Able to speak in full sentences. No wheezing, no rhonchi, no crackles. No stridors Clear to auscultation bilaterally. Abdomen: Suprapubic tender to palpation, non distended, soft, no guarding, no rebound, + bowel sounds. : Noted Shah catheter with blood clots in the Shah tube itself at around the urethral meatus. Neuro: Awake, Alert, oriented to name, self, situation, follows commands GCS=15. Speech is normal. Skin: no petechia, no purpura, no cyanosis, non-pale, not jaundice. Lower extremities: --no - Pitting edema no deformity, no focal swelling, no calf TTP. Makes eye contact. moves all four extremities. Face: no apparent facial droop. Ambulating in the ED independently. ED COURSE: Chief Complaint: Urinary Time Seen by MD: 01:31 Reviewed notes: Nurses Notes, Medications, Allergies Allergies: Coded Allergies: NO KNOWN ALLERGIES (Unverified , 04/26/24) Home Meds Active Scripts Hctz (Hydrochlorothiazide) 25 Mg Tab, 25 MG PO DAILY@BREAKFAST, #60 TAB Prov:FIDEL ALAN MD 04/29/24 Lisinopril (Lisinopril) 20 Mg Tab, 1 TAB PO DAILY, #90 TAB 1 Refill Prov:FIDEL ALAN MD 04/29/24 Clopidogrel Bisulfate (CLOPIDOGREL) 75 Mg Tab, 1 TAB PO DAILY, #21 TAB Prov:FIDEL ALAN MD 04/29/24 Aspirin (Aspirin EC Adult Low Dose) 81 Mg Tab, 81 MG PO DAILY, #120 TAB Prov:FIDEL ALAN MD 04/29/24 Losartan Potassium (Losartan Potassium) 50 Mg Tab, 50 MG PO BID, #120 MG Prov:FIDEL ALAN MD 04/29/24 Reported Medications Pantoprazole Sodium Sesquihydr (Protonix) 40 Mg Tab, 40 MG PO DAILY, #30 TAB 04/27/24 Levothyroxine Sodium (Levothyroxine Sodium) 50 Mcg Tab, 50 MCG PO QAM, TAB 04/27/24 Finasteride (Finasteride) 5 Mg Tab, 5 MG PO QAM for 30 Days, MG 04/27/24 Information Source: Patient, Spouse Past Medical History PAST MEDICAL HISTORY: HTN, Thyroid Surgical History: Unknown, Unobtainable Family History Family History: Unknown, Unobtainable Social History Smoker: Unknown, Unobtainable Alcohol: Unknown, Unobtainable Drugs: Unknown, Unobtainable Lives In: Home Was a procedure done? Was a procedure done?: No Differential Diagnosis Kidney stone (Female): N/A Urinary Problem (Male): Bladder Outlet, Bladder Obstruction, Epididymitis, Prostatitis, Plelonephritis, Post op Complications, Renal Failure, Urethritis, Urinary Retention, Urolithiasis, UTI X-Ray, Labs, Meds, VS Vital Signs Date Time Temp Pulse Resp B/P (MAP) Pulse Ox O2 Delivery O2 Flow Rate FiO2 06/02/24 01:45 99.8 92 20 136/64 (88) 97 Lab Test 06/02/24 02:24 Range/Units White Blood Count 16.2 H 4.4-10.8 10^3/uL Red Blood Count 4.51 4.5-5.90 10^6/uL Hemoglobin 13.7 13.5-17.5 g/dL Hematocrit 40.2 L 41.0-53.0 % Mean Corpuscular Volume 89.0 80.0-100.0 fL Mean Corpuscular Hemoglobin 30.4 28.0-32.0 pg Mean Corpuscular Hemoglobin Concent 34.2 32.0-36.0 g/dL Red Cell Distribution Width 13.7 11.8-14.3 % Platelet Count 190 140-450 10^3/uL Mean Platelet Volume 9.1 6.9-10.8 fL Neutrophils (%) (Auto) 79.7 37.0-80.0 % Lymphocytes (%) (Auto) 8.6 L 10.0-50.0 % Monocytes (%) (Auto) 11.2 0.0-12.0 % Eosinophils (%) (Auto) 0.2 0.0-7.0 % Basophils (%) (Auto) 0.3 0.0-2.0 % Neutrophils # (Auto) 12.9 H 1.6-8.6 10 ^3/uL Lymphocytes # (Auto) 1.4 0.4-5.4 10 ^3/uL Monocytes # (Auto) 1.8 H 0-1.3 10 ^3/uL Eosinophils # (Auto) 0 0-0.8 10 ^3/uL Basophils # (Auto) 0 0-0.2 10 ^3/uL Nucleated Red Blood Cells 0.0 % Sodium Level 134 L 136-145 mmol/L Potassium Level 3.2 L 3.5-5.1 mmol/L Chloride Level 102 98-107 mmol/L Carbon Dioxide Level 21 20-31 mmol/L Anion Gap 11 5-15 Blood Urea Nitrogen 16 9-23 mg/dL Creatinine 1.37 H 0.700-1.30 mg/dL Glomerular Filtration Rate Calc 52 >90 mL/min BUN/Creatinine Ratio 11.7 10.0-20.0 Serum Glucose 145 H 74-106 mg/dL Lactic Acid Level 1.3 0.4-2.0 mmol/L Calcium Level 9.6 8.7-10.4 mg/dL Total Bilirubin 1.0 0.2-1.0 mg/dL Aspartate Amino Transferase (AST) 22 13-40 U/L Alanine Aminotransferase (ALT) 12 7-40 U/L Alkaline Phosphatase 72 46-116 U/L Total Protein 7.2 5.7-8.2 g/dL Albumin 4.4 3.2-4.8 g/dL Time of 1ST Reevaluation: 04:11 (We attempted to irrigate the Shah catheter tube. There was significant amount of blood clots occlusion in the tube itself. We were unable to completely flush the tube a point where urine can flow through the tube into the bag. Bladder scan shows approximately 650 cc. There is still blood coming out. We will replace the Shah catheter completely and do continuous bladder irrigation afterwards. The case was discussed with the admitting team (HPI, physical exam, labs and diagnostic tests that were available at the time of disposition, ED course, treatment plan) on the phone. They agreed to admit the patient to their service if we are able to replace the Shah catheter. 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 a Urology consult was placed. ) Reevaluation 1ST: Unchanged Patient Education/Counseling: Diagnosis, Treatment Family Education/Counseling: Diagnosis, Treatment Comments Patient has leukocytosis. Patient has hematuria. I started the patient on antibiotics and will initiate continuous bladder irrigation once we can replace the Shah catheter. Patient received heparin according to the today. We will replace the Shah catheter some do continuous bladder irrigation and repeat H and H. The care of this patient was signed out to my colleague Dr. Vivar. Departure 1 Departure Time of Disposition: 03:40 Impression: Primary Impression: Acute urinary retention Additional Impressions: Complication of Shah catheter Leukocytosis Disposition: ADMITTED INPATIENT Admit to: Tele Condition: Guarded Discharged With: Self, Spouse Critical Care Note Critical Care Time?: Yes (35 min-critical care time only) MAYTE FARRAR DO Jun 02, 2024 01:48
[2024-06-02 02:55] LABS: Basophils # (auto) 0 10 ^3/uL (0-0.2); Basophils % (auto) 0.3 % (0.0-2.0); Eosinophils # (auto) 0 10 ^3/uL (0-0.8); Eosinophils % (auto) 0.2 % (0.0-7.0); Hematocrit 40.2 % (41.0-53.0); Hemoglobin 13.7 g/dL (13.5-17.5); Lymphocytes # (auto) 1.4 10 ^3/uL (0.4-5.4); Lymphocytes % (auto) 8.6 % (10.0-50.0); Mean Corpuscular Hemoglobin 30.4 pg (28.0-32.0); Mean Corpuscular Hgb Conc. 34.2 g/dL (32.0-36.0); Monocytes # (auto) 1.8 10 ^3/uL (0-1.3); Monocytes % (auto) 11.2 % (0.0-12.0); Neutrophils # (auto) 12.9 10 ^3/uL (1.6-8.6); Neutrophils % (auto) 79.7 % (37.0-80.0); Platelet Count (auto) 190 10^3/uL (140-450); Red Blood Cells 4.51 10^6/uL (4.5-5.90); Red Cell Distribution Width 13.7 % (11.8-14.3); White Blood Cell 16.2 10^3/uL (4.4-10.8)
[2024-06-02 03:08] LABS: Alanine Aminotransferase 12 U/L (7-40); Albumin 4.4 g/dL (3.2-4.8); Alkaline Phosphatase 72 U/L (46-116); Anion Gap 11 (5-15); Aspartate Aminotransferase 22 U/L (13-40); BUN/Creatinine Ratio 11.7 (10.0-20.0); Blood Urea Nitrogen 16 mg/dL (9-23); Calcium 9.6 mg/dL (8.7-10.4); Carbon Dioxide 21 mmol/L (20-31); Chloride 102 mmol/L (98-107)
[2024-06-02 03:09] LABS: Total Protein 7.2 g/dL (5.7-8.2)
[2024-06-02 03:29] LABS: Glucose 145 mg/dL (74-106); Potassium 3.2 mmol/L (3.5-5.1); Sodium 134 mmol/L (136-145)
[2024-06-02] MEDS ORDERED: HYDROcodone-ACET 5/325MG TAB PO PRN (05:00)
[2024-06-02] MEDS ORDERED: ACETAMINOPHEN 325 MG TAB PO PRN (05:00)
[2024-06-02] MEDS ORDERED: ONDANSETRON HCL 4 MG/2 ML VIAL IV PRN (05:00)
--- NOTE | 2024-06-02 05:01 | DVHHP2 ---
Admitting Diagnosis: Hematuria, Leukocytosis History of Present Illness History Source: Spouse/Significant Other HPI Mr. Javier Jaime is an 83 year-old male with a history of hypertension, thyroid disease, hyperlipidemia, CVA, CHF. Patient underwent a right inguinal hernia repair yesterday and a surgical outpatient procedure by Dr. Dodd and was discharged home. He was instructed that if he was unable to urinate to go to urgent care to get a Shah catheter. Patient was unable to void urine for 3 hours. Patient then went to urgent care where they attempted a traumatic Shah catheter insertion where there was noted bleeding according to the . Patient was instructed by urgent care that if he does not produce any urine that he should go to the nearest ER for further evaluation and treatment. Patiisidro hobbs arrived with no urinary output in Shah catheter leg bag and was noted to have blood clots in tubing. ED attempted to irrigate Shah catheter and were unsuccessful. Patient Shah catheter was changed and CBI was initiated by ED. Patient admitted for further evaluation and treatment. Home Meds Active Scripts Hctz (Hydrochlorothiazide) 25 Mg Tab, 25 MG PO DAILY@BREAKFAST, #60 TAB Prov:FIDEL ALAN MD 04/29/24 Lisinopril (Lisinopril) 20 Mg Tab, 1 TAB PO DAILY, #90 TAB 1 Refill Prov:FIDEL ALAN MD 04/29/24 Clopidogrel Bisulfate (CLOPIDOGREL) 75 Mg Tab, 1 TAB PO DAILY, #21 TAB Prov:FIDEL ALAN MD 04/29/24 Aspirin (Aspirin EC Adult Low Dose) 81 Mg Tab, 81 MG PO DAILY, #120 TAB Prov:FIDEL ALAN MD 04/29/24 Losartan Potassium (Losartan Potassium) 50 Mg Tab, 50 MG PO BID, #120 MG Prov:FIDEL ALAN MD 04/29/24 Reported Medications Pantoprazole Sodium Sesquihydr (Protonix) 40 Mg Tab, 40 MG PO DAILY, #30 TAB 04/27/24 Levothyroxine Sodium (Levothyroxine Sodium) 50 Mcg Tab, 50 MCG PO QAM, TAB 04/27/24 Finasteride (Finasteride) 5 Mg Tab, 5 MG PO QAM for 30 Days, MG 04/27/24 Past Medical History Cardiac: CHF, HTN, Hyperlipidemia Pulmonary: No pertinent Hx Central Nervous System: CVA GI: No pertinent Hx Hemotology/Oncology: No pertinent Hx Hepatobiliary: No pertinent Hx Psychiatric: No pertinent Hx Musculoskeletal: No pertinent Hx Rheumotologic: No pertinent Hx Infectious Disease: No peritnent Hx ENT: No pertinent Hx Renal/: No pertinent Hx Endocrine: Hypothyroidism Dermatology: No pertinent Hx Patient Family History: Cardiac pacemaker G8 FATHER Colon cancer G8 MOTHER FH: bladder cancer G8 MOTHER Smoker: No Hx (Negative) Alocohol: None Drugs: None Lives with: With family Domestic Violence: Neg Review of Systems Constitutional: No symptom reported Ears, Nose, & Throat: No symptom reported Eyes: No symptom reported Pulmonary/Respiratory: No symptom reported Cardiovascular: No symptom reported Gastrointestinal: No symptom reported Genitourinary: Hematuria, Retention Musculoskeletal: No symptom reported Skin: No symptom reported Psychiatric: No symptom reported Endocrine: No symptom reported Hemotologic/Lymphatic: No symptom reported H&P Exam Vital Signs Vital Signs Date Time Temp Pulse Resp B/P (MAP) Pulse Ox O2 Delivery O2 Flow Rate FiO2 06/02/24 01:45 99.8 92 20 136/64 (88) 97 General Appeara: Well developed, Well nourished, Normal Appearance Head Exam: Normal inspection Neck Exam: Normal inspection, Non-tender, Normal alignment Eye Exam: bilateral eye Normal inspection, bilateral eye PERRL, bilateral eye EOMI Ear Exam: bilateral ear Auricle normal Nasal Exam: Normal inspection Mouth: Normal Inspection Pulmonary/Respiratory: Normal inspection, Normal breath sounds, Chest non- tender, Lungs clear Cardiovascular/Chest: Normal inspection, Regular rate, Normal Rhythm Peripheral Pulses: 2+ dorsalis pedis (R), 2+ dorsalis pedis (L), 2+ Radial (R), 2+ Radial (L) Abdominal Exam: Normal bowel sounds, Soft, No tenderness Rectal Exam: Deferred EDUCATION LIAISON Exam: Normal hearing, Normal speech, PERRL Neuro/Mental St: Alert, Oriented Appearance: Appropriate appearance, Appropriate insight Eye contact/ Speech: Cooperative, Good eye contact, Normal speech Skin Exam: Normal inspection, Normal color, Warm/dry Labs/Xrays Labs Test 06/02/24 02:24 Range/Units White Blood Count 16.2 H 4.4-10.8 10^3/uL Red Blood Count 4.51 4.5-5.90 10^6/uL Hemoglobin 13.7 13.5-17.5 g/dL Hematocrit 40.2 L 41.0-53.0 % Mean Corpuscular Volume 89.0 80.0-100.0 fL Mean Corpuscular Hemoglobin 30.4 28.0-32.0 pg Mean Corpuscular Hemoglobin Concent 34.2 32.0-36.0 g/dL Red Cell Distribution Width 13.7 11.8-14.3 % Platelet Count 190 140-450 10^3/uL Mean Platelet Volume 9.1 6.9-10.8 fL Neutrophils (%) (Auto) 79.7 37.0-80.0 % Lymphocytes (%) (Auto) 8.6 L 10.0-50.0 % Monocytes (%) (Auto) 11.2 0.0-12.0 % Eosinophils (%) (Auto) 0.2 0.0-7.0 % Basophils (%) (Auto) 0.3 0.0-2.0 % Neutrophils # (Auto) 12.9 H 1.6-8.6 10 ^3/uL Lymphocytes # (Auto) 1.4 0.4-5.4 10 ^3/uL Monocytes # (Auto) 1.8 H 0-1.3 10 ^3/uL Eosinophils # (Auto) 0 0-0.8 10 ^3/uL Basophils # (Auto) 0 0-0.2 10 ^3/uL Nucleated Red Blood Cells 0.0 % Sodium Level 134 L 136-145 mmol/L Potassium Level 3.2 L 3.5-5.1 mmol/L Chloride Level 102 98-107 mmol/L Carbon Dioxide Level 21 20-31 mmol/L Anion Gap 11 5-15 Blood Urea Nitrogen 16 9-23 mg/dL Creatinine 1.37 H 0.700-1.30 mg/dL Glomerular Filtration Rate Calc 52 >90 mL/min BUN/Creatinine Ratio 11.7 10.0-20.0 Serum Glucose 145 H 74-106 mg/dL Lactic Acid Level 1.3 0.4-2.0 mmol/L Calcium Level 9.6 8.7-10.4 mg/dL Total Bilirubin 1.0 0.2-1.0 mg/dL Aspartate Amino Transferase (AST) 22 13-40 U/L Alanine Aminotransferase (ALT) 12 7-40 U/L Alkaline Phosphatase 72 46-116 U/L Total Protein 7.2 5.7-8.2 g/dL Albumin 4.4 3.2-4.8 g/dL Assessment/Plan Problem List: (1) Hematuria (2) Acute urinary retention (3) Leukocytosis (4) Complication of Shah catheter Plan This is an 83 yo male with a known history of hypertension, thyroid disease, hyperlipidemia, CVA, CHF, s/p right inguinal hernia repair x 1 day who presents with dysuria and hematuria. 1. Acute urinary retention 2. Hematuria 3. Leukocytosis Plan Admit Med Surg Urology consultation serial H&H levels Continue CBI Urine culture Broad spectrum IV antibiotic GI ppx Reconcile home medications continue as needed when reconciled Discussed all above with patient and patient in the ED , both verbalized agreement and understanding of care plan. Discussed assessment and care plan with supervising MD. Patient's chart is reviewed, seen and evaluated. Patient seen evaluated and admitted by nurse practitioner this morning. I agree with the nurse practitioner's evaluation, documentation, assessment and care plan as outlined. Plan discussed with: Spouse Code Visit Code Visit Total Time (mins): 45 JUDE MALIN Jun 02, 2024 05:01 FIDEL ALAN MD Jun 02, 2024 15:09
[2024-06-02 05:13] LABS: INR 1.04 (0.9-1.15)
[2024-06-02] MEDS: SODIUM CHLORIDE 0.9% 500 ML IV ONE (05:59)
[2024-06-02] MEDS: cefTRIAXone 1GM/50ML D5W 50 ML IV ONE (05:59)
[2024-06-02] MEDS: LIDOCAINE 2% TOPICAL JELLY 5 ML URJT TOP ONE (05:59)
[2024-06-02 06:04] LABS: Hematocrit 39.5 % (41.0-53.0); Hemoglobin 13.7 g/dL (13.5-17.5)
--- NOTE | 2024-06-02 08:35 | DVHINCON2 ---
Date of service: Jun 02, 2024 Referring Physician Hospitalist Reason for Consultation Urinary retention Patient has a Solitario catheter in place History of Present Illness 83 year-old male with a history of hypertension, thyroid disease, hyperlipidemia, CVA, CHF. Patient underwent a right inguinal hernia repair yesterday and a surgical outpatient procedure by Dr. Dodd and was discharged home. He was instructed that if he was unable to urinate to go to urgent care to get a Solitario catheter. Patient was unable to void urine for 3 hours. Patient then went to urgent care where they attempted a traumatic Solitario catheter insertion where there was noted bleeding according to the . Patient was instructed by urgent care that if he does not produce any urine that he should go to the nearest ER for further evaluation and treatment. Patient arrived with no urinary output in Solitario catheter leg bag and was noted to have blood clots in tubing. ED attempted to irrigate Solitario catheter and were unsuccessful. Patient Solitario catheter was changed and CBI was initiated by ED. Patient admitted for further evaluation and treatment. Home Meds Active Scripts Hctz (Hydrochlorothiazide) 25 Mg Tab, 25 MG PO DAILY@BREAKFAST, #60 TAB Prov:FIDEL ALNA MD 04/29/24 Lisinopril (Lisinopril) 20 Mg Tab, 1 TAB PO DAILY, #90 TAB 1 Refill Prov:FIDEL ALAN MD 04/29/24 Clopidogrel Bisulfate (CLOPIDOGREL) 75 Mg Tab, 1 TAB PO DAILY, #21 TAB Prov:FIDEL ALAN MD 04/29/24 Aspirin (Aspirin EC Adult Low Dose) 81 Mg Tab, 81 MG PO DAILY, #120 TAB Prov:FIDEL ALAN MD 04/29/24 Losartan Potassium (Losartan Potassium) 50 Mg Tab, 50 MG PO BID, #120 MG Prov:FIDEL ALAN MD 04/29/24 Reported Medications Pantoprazole Sodium Sesquihydr (Protonix) 40 Mg Tab, 40 MG PO DAILY, #30 TAB 04/27/24 Levothyroxine Sodium (Levothyroxine Sodium) 50 Mcg Tab, 50 MCG PO QAM, TAB 04/27/24 Finasteride (Finasteride) 5 Mg Tab, 5 MG PO QAM for 30 Days, MG 04/27/24 Past Medical History Cardiac: CHF, HTN, Hyperlipidemia Pulmonary: No pertinent Hx Central Nervous System: CVA GI: No pertinent Hx Hemotology/Oncology: No pertinent Hx Hepatobiliary: No pertinent Hx Psychiatric: No pertinent Hx Musculoskeletal: No pertinent Hx Rheumotologic: No pertinent Hx Infectious Disease: No peritnent Hx ENT: No pertinent Hx Renal/: No pertinent Hx Endocrine: Hypothyroidism Dermatology: No pertinent Hx Past Surgical History 06/01/24 Hernia repair Previously T&A Family History: Cardiac pacemaker G8 FATHER Colon cancer G8 MOTHER FH: bladder cancer G8 MOTHER Allergies: Coded Allergies: NO KNOWN ALLERGIES (Unverified , 04/26/24) Home Meds Active Scripts Hctz (Hydrochlorothiazide) 25 Mg Tab, 25 MG PO DAILY@BREAKFAST, #60 TAB Prov:FIDEL ALAN MD 04/29/24 Lisinopril (Lisinopril) 20 Mg Tab, 1 TAB PO DAILY, #90 TAB 1 Refill Prov:FIDEL ALAN MD 04/29/24 Clopidogrel Bisulfate (CLOPIDOGREL) 75 Mg Tab, 1 TAB PO DAILY, #21 TAB Prov:FIDEL ALAN MD 04/29/24 Aspirin (Aspirin EC Adult Low Dose) 81 Mg Tab, 81 MG PO DAILY, #120 TAB Prov:FIDEL ALAN MD 04/29/24 Losartan Potassium (Losartan Potassium) 50 Mg Tab, 50 MG PO BID, #120 MG Prov:FIDEL ALAN MD 04/29/24 Reported Medications Pantoprazole Sodium Sesquihydr (Protonix) 40 Mg Tab, 40 MG PO DAILY, #30 TAB 04/27/24 Levothyroxine Sodium (Levothyroxine Sodium) 50 Mcg Tab, 50 MCG PO QAM, TAB 04/27/24 Finasteride (Finasteride) 5 Mg Tab, 5 MG PO QAM for 30 Days, MG 04/27/24 Current Medications Current Medications Medications (Trade) Dose Ordered Sig/Jose Route PRN Reason Start Time Stop Time Status Last Admin Ceftriaxone Sodium 50 ml @ 100 mls/hr DAILY@0300 IV 06/03/24 03:00 Ondansetron HCl (Zofran) 4 mg Q6HPRN PRN IV NAUSEA / VOMITING 06/02/24 05:00 Acetaminophen (Tylenol Tablet) 650 mg Q6HPRN PRN PO PAIN SCALE 1-3 OR TEMP>100.4 06/02/24 05:00 Acetaminophen/ Hydrocodone Bitart ([place] 5/325MG Tab) 1 tab Q6HPRN PRN PO PAIN SCALE 1 THRU 6 06/02/24 05:00 Pantoprazole Sodium (Protonix) 40 mg DAILY IV 06/02/24 10:00 Levothyroxine Sodium (Synthroid Tablet) 50 mcg QAM PO 06/02/24 07:00 Review of Systems Constitutional: No symptom reported Ears, Nose, & Throat: No symptom reported Eyes: No symptom reported Pulmonary/Respiratory: No symptom reported Cardiovascular: No symptom reported Gastrointestinal: No symptom reported Genitourinary: Hematuria, Retention Musculoskeletal: No symptom reported Skin: No symptom reported Psychiatric: No symptom reported Endocrine: No symptom reported Hemotologic/Lymphatic: No symptom reported Vital Signs Vital Signs Date Time Temp Pulse Resp B/P (MAP) Pulse Ox O2 Delivery O2 Flow Rate FiO2 06/02/24 07:53 98.6 54 20 111/48 (69) 95 98.6 Physical Exam Vital Signs Date Time Temp Pulse Resp B/P (MAP) Pulse Ox O2 Delivery O2 Flow Rate FiO2 06/02/24 01:45 99.8 92 20 136/64 (88) 97 General Appeara: Well developed, Well nourished, Normal Appearance Head Exam: Normal inspection Neck Exam: Normal inspection, Non-tender, Normal alignment Eye Exam: bilateral eye Normal inspection, bilateral eye PERRL, bilateral eye EOMI Ear Exam: bilateral ear Auricle normal Nasal Exam: Normal inspection Mouth: Normal Inspection Pulmonary/Respiratory: Normal inspection, Normal breath sounds, Chest non- tender, Lungs clear Cardiovascular/Chest: Normal inspection, Regular rate, Normal Rhythm Peripheral Pulses: 2+ dorsalis pedis (R), 2+ dorsalis pedis (L), 2+ Radial (R), 2+ Radial (L) Abdominal Exam: Normal bowel sounds, Soft, No tenderness : solitario in place with CBI. Urine clearing. Rectal Exam: Deferred CARDIOLOGY ASSOCIATE Exam: Normal hearing, Normal speech, PERRL Neuro/Mental St: Alert, Oriented Appearance: Appropriate appearance, Appropriate insight Eye contact/ Speech: Cooperative, Good eye contact, Normal speech Skin Exam: Normal inspection, Normal color, Warm/dry Labs/Diagnostic Data Labs Test 06/02/24 05:52 06/02/24 02:24 Range/Units Hemoglobin 13.7 13.5-17.5 g/dL Hematocrit 39.5 L 41.0-53.0 % White Blood Count 16.2 H 4.4-10.8 10^3/uL Red Blood Count 4.51 4.5-5.90 10^6/uL Mean Corpuscular Volume 89.0 80.0-100.0 fL Mean Corpuscular Hemoglobin 30.4 28.0-32.0 pg Mean Corpuscular Hemoglobin Concent 34.2 32.0-36.0 g/dL Red Cell Distribution Width 13.7 11.8-14.3 % Platelet Count 190 140-450 10^3/uL Mean Platelet Volume 9.1 6.9-10.8 fL Neutrophils (%) (Auto) 79.7 37.0-80.0 % Lymphocytes (%) (Auto) 8.6 L 10.0-50.0 % Monocytes (%) (Auto) 11.2 0.0-12.0 % Eosinophils (%) (Auto) 0.2 0.0-7.0 % Basophils (%) (Auto) 0.3 0.0-2.0 % Neutrophils # (Auto) 12.9 H 1.6-8.6 10 ^3/uL Lymphocytes # (Auto) 1.4 0.4-5.4 10 ^3/uL Monocytes # (Auto) 1.8 H 0-1.3 10 ^3/uL Eosinophils # (Auto) 0 0-0.8 10 ^3/uL Basophils # (Auto) 0 0-0.2 10 ^3/uL Nucleated Red Blood Cells 0.0 % Prothrombin Time 11.0 9.3-11.8 sec Prothrombin Time INR 1.04 0.9-1.15 Sodium Level 134 L 136-145 mmol/L Potassium Level 3.2 L 3.5-5.1 mmol/L Chloride Level 102 98-107 mmol/L Carbon Dioxide Level 21 20-31 mmol/L Anion Gap 11 5-15 Blood Urea Nitrogen 16 9-23 mg/dL Creatinine 1.37 H 0.700-1.30 mg/dL Glomerular Filtration Rate Calc 52 >90 mL/min BUN/Creatinine Ratio 11.7 10.0-20.0 Serum Glucose 145 H 74-106 mg/dL Lactic Acid Level 1.3 0.4-2.0 mmol/L Calcium Level 9.6 8.7-10.4 mg/dL Total Bilirubin 1.0 0.2-1.0 mg/dL Aspartate Amino Transferase (AST) 22 13-40 U/L Alanine Aminotransferase (ALT) 12 7-40 U/L Alkaline Phosphatase 72 46-116 U/L Total Protein 7.2 5.7-8.2 g/dL Albumin 4.4 3.2-4.8 g/dL Assessment Acute urinary retention status post hernia repair Gross hematuria secondary to traumatic Solitario placement Plan/Recommendation Continue CBI til clear. CT Scan AP NC May discharge home with Solitario catheter and follow up in clinic for cystoscopy and voiding trial Plan discussed with: Patient, Spouse BELINDA JEAN MD Jun 02, 2024 08:35
[2024-06-02] MEDS: LEVOTHYROXINE SODIUM 50 MCG TAB PO SCH (08:39)
--- NOTE | 2024-06-02 09:50 | DVH ---
Exam: CT CT AB PEL WO CON-NO ORAL OR IV History: gross hematuria Comparison Study: None Technique: Multidetector spiral CT of the abdomen and pelvis was performed from lung bases to pubic symphysis. Imaging was performed without IV contrast. Axial, coronal and sagittal multiplanar reform ats were obtained from the axial data set by the technologist. Radiation dose : Abdomen/Pelvis: CTDIvol 13 mGy, DLP 478.6 mGy*cm. Findings: Evaluation of solid organs is limited due to lack of intravenous contrast use. Lung Bases: Possible calcified left hilar lymph node partially imaged. Liver: The liver is normal in size. No focal lesions. Gallbladder and biliary Tree: Unremarkable Spleen: Unremarkable Pancreas: The pancreas is grossly normal in appearance. Adrenal Glands: Unremarkable Kidneys: Kidneys are grossly normal without calculi or hydronephrosis. Bladder: Bladder is decompressed with a Shah catheter and cannot be adequately assessed. Bowel: The stomach is grossly normal in appearance. Small bowel and colon are normal in caliber and d istribution. Normal appendix is visualized in the right lower quadrant without findings of appendici tis. Sigmoid diverticulosis. Ascites: Absent Lymphadenopathy: No mesenteric, retroperitoneal or periportal lymphadenopathy. Abdominal wall and Mesentery: There is fluid and air in the right inguinal canal tracking from the sc rotum to the right lower quadrant. There is subcutaneous emphysema in the right anterior pelvic wall. Minimal nonspecific mesenteric stranding is noted. Vasculature: The visualized abdominal aorta is normal in size and caliber. Evaluation of abdominal a nd pelvic vessels is limited due to lack of intravenous contrast. Pelvic Organs: Prostate is enlarged. Right testicle appears enlarged and heterogeneous. Musculoskeletal: No aggressive focal bony lesions, acute fractures or dislocation. IMPRESSION: 1. Apparent postsurgical changes of the right anterior pelvic wall. Fluid and air in the right ingui nal canal tracking from the scrotum to the right lower quadrant. Findings could be postsurgical. Supe rimposed infection including necrotizing fasciitis is not excluded. Clinical correlation is recommen ded. Right testicle appears abnormal. Consider scrotal ultrasound. Prostatomegaly. Bladder decompre ssed with a Shah catheter in place. No hydronephrosis or nephrolithiasis. Radiation optimization: All CT scans at this facility use at least one of these dose optimization sidney hniques: Automated exposure control mA and/or kV adjustment per patient size (includes targeted exams where dose is matched to clinical indication) or iterative reconstruction. HS:Y
[2024-06-02 10:13] VITALS: BP 137/73; PULSE 58; RESP 18; TEMP 98.3; O2SAT 94
[2024-06-02] MEDS: PANTOPRAZOLE 40 MG/10 ML VIAL INJ IV SCH (10:21)
[2024-06-03] MEDS ORDERED: cefTRIAXone 1GM/50ML D5W 50 ML IV SCH (03:00)
== END 2024-06-02 15:40 | disposition left against medical advice (07) | DRG 700 ==
LOC: ER 01:23 → OVERFLOW 04:46
PROVIDERS: ADMIT Nurse Practitioner Family; ATTEND Nurse Practitioner Family
DX: T83.83XA Hemorrhage due to genitourinary prosthetic devices, implants and grafts, initial encounter (principal); D72.829 Elevated white blood cell count, unspecified; N40.1 Benign prostatic hyperplasia with lower urinary tract symptoms; K40.90 Unilateral inguinal hernia, without obstruction or gangrene, not specified as recurrent; I50.9 Heart failure, unspecified; I11.0 Hypertensive heart disease with heart failure; E78.5 Hyperlipidemia, unspecified; E03.9 Hypothyroidism, unspecified; Y84.6 Urinary catheterization as the cause of abnormal reaction of the patient, or of later complication, without mention of misadventure at the time of the procedure; Z86.73 Personal history of transient ischemic attack (TIA), and cerebral infarction without residual deficits; Z80.52 Family history of malignant neoplasm of bladder; Z80.0 Family history of malignant neoplasm of digestive organs; Z79.899 Other long term (current) drug therapy; Z79.02 Long term (current) use of antithrombotics/antiplatelets; Z85.038 Personal history of other malignant neoplasm of large intestine; Z95.0 Presence of cardiac pacemaker; Z79.82 Long term (current) use of aspirin
CPT/HCPCS: 36415; 74176; 80053; 83605; 85014; 85018; 85025; 85610; 86850; 86900; 86901; 96365; 96375; G0378; J2470

== ENCOUNTER 2024-10-10 17:00 | Emergency (ER) | payer OTHER ==
[~2024-10-10] VITALS: Ht 172.7 cm; Wt 66.0 kg
[2024-10-10 17:12] VITALS: BP 158/95; PULSE 71; RESP 16; TEMP 97.9; O2SAT 97
--- NOTE | 2024-10-10 17:47 | ED.PDOC ---
History of Present Illness HPI Comments 83-year-old male presents with a chief complaint of foreign body. Patient reports that he swallowed a plastic cap off of "something" while trying to remove the cap with his teeth. Patient states that it occurred 2 hours ago. Patient also states that he fell while attempting to get to the hospital. Patient could not specify where he fell. Patient has a 3cm abrasion to his left elbow from the fall. Chief Complaint: Foreign Body Time Seen by MD: 17:39 Primary Care Provider: UNKNOWN Reviewed Notes: Medications, Allergies Allergies: Coded Allergies: NO KNOWN ALLERGIES (Unverified , 04/26/24) Home Meds Active Scripts Hctz (Hydrochlorothiazide) 25 Mg Tab, 25 MG PO DAILY@BREAKFAST, #60 TAB Prov:FIDEL ALAN MD 04/29/24 Lisinopril (Lisinopril) 20 Mg Tab, 1 TAB PO DAILY, #90 TAB 1 Refill Prov:FIDEL ALAN MD 04/29/24 Clopidogrel Bisulfate (CLOPIDOGREL) 75 Mg Tab, 1 TAB PO DAILY, #21 TAB Prov:FIDEL ALAN MD 04/29/24 Aspirin (Aspirin EC Adult Low Dose) 81 Mg Tab, 81 MG PO DAILY, #120 TAB Prov:FIDEL ALAN MD 04/29/24 Losartan Potassium (Losartan Potassium) 50 Mg Tab, 50 MG PO BID, #120 MG Prov:FIDEL ALAN MD 04/29/24 Reported Medications Pantoprazole Sodium Sesquihydr (Protonix) 40 Mg Tab, 40 MG PO DAILY, #30 TAB 04/27/24 Levothyroxine Sodium (Levothyroxine Sodium) 50 Mcg Tab, 50 MCG PO QAM, TAB 04/27/24 Finasteride (Finasteride) 5 Mg Tab, 5 MG PO QAM for 30 Days, MG 04/27/24 Information Source: Patient Mode of Arrival: Ambulatory Severity: Moderate Timing: Hours Duration: Since onset Prehospital treatment: None Past Medical History PAST MEDICAL HISTORY: HTN, Thyroid Surgical History: Unknown, Unobtainable Family History Family History: Unknown, Unobtainable Social History Smoker: Unknown, Unobtainable Alcohol: Unknown, Unobtainable Drugs: Unknown, Unobtainable Lives In: Home Constitutional: denies: chills, diaphoresis, fatigue, fever, malaise, sweats, weakness, others EENTM: denies: blurred vision, double vision, ear bleeding, ear discharge, ear drainage, ear pain, ear ringing, eye pain, eye redness, hearing loss, mouth pain, mouth swelling, nasal discharge, nose bleeding, nose congestion, nose pain, photophobia, tearing, throat pain, throat swelling, voice changes, others Respiratory: denies: cough, hemoptysis, orthopnea, SOB at rest, shortness of breath, SOB with excertion, stridor, wheezing, others Cardiovascular: denies: chest pain, dizzy spells, diaphoresis, Dyspnea on exertion, edema, irregular heart beat, left arm pain, lightheadedness, palpitations, PND, syncope, others Gastrointestinal: reports: others (POSSIBLE FOREIGN BODY); denies: abdomen distended, abdominal pain, blood streaked bowels, constipated, diarrhea, dysphagia, difficulty swallowing, hematemesis, melena, nausea, poor appetite, poor fluid intake, rectal bleeding, rectal pain, vomiting Genitourinary: denies: burning, dysuria, flank pain, frequency, hematuria, incontinence, penile discharge, penile sore, pain, testicle pain, testicle swe lling, urgency, others Neurological: denies: dizziness, fainting, headache, left sided numbness, left sided weakness, numbness, paresthesia, pre-existing deficit, right sided numbness, right sided weakness, seizure, speech problems, tingling, tremors, weakness, others Musculoskeletal: denies: back pain, gout, joint pain, joint swelling, muscle pain, muscle stiffness, neck pain, others Integumetry: reports: others (ABRASION); denies: bruises, change in color, change in hair/nails, dryness, laceration, lesions, lumps, rash, wounds Allergic/Immunocompromised: denies: Difficulty Healing, Frequent Infections, Hives, Itching, others Hematologic/Lymphatic: denies: anemia, blood clots, easy bleeding, easy bruising, swollen glands, others Endocrine: denies: excessive hunger, excessive sweating, excessive thirst, excessive urination, flushing, intolerance to cold, intolerance to heat, unexplained weight gain, unexplained weight loss, others Psychiatric: denies: anxiety, bipolar disorder, depression, hopeless, panic disorder, schizophrenia, sleepless, suicidal, others All Other Systems: Reviewed and Negative Physical Exam General Appearance: No Apparent Distress, Normal HEENT: Normal ENT Inspection, Pharynx Normal, TMs Normal Neck: Full Range of Motion, Non-Tender, Normal, Normal Inspection Respiratory: Chest Non-Tender, Lungs Clear, No Accessory Muscle Use, No Respiratory Distress, Normal Breath Sounds Cardiovascular: No Edema, No JVD, No Murmur, No Gallop, Normal Peripheral Pulses, Regular Rate/Rhythm Breast Exam: Deferred Gastrointestinal: No Organomegaly, Non Tender, No Pulsatile Mass, Normal Bowel Sounds, Soft Genitalia: Deferred Pelvic: Deferred Rectal: Deferred Extremities: No calf tenderness, Normal capillary refill, Normal inspection, Normal range of motion, Non-tender, No pedal edema, Other (3cm ABRASION TO LEFT ELBOW) Musculoskeletal : Apperance: Normal Neurologic: Alert, biometrics specialist II-XII nml as Tested, No Motor Deficits, Normal Affect, Normal Mood, No Sensory Deficits Cerebellar Function: Normal Reflexes: Normal Skin: Dry, Normal Color, Warm Lymphatic: No Adenopathy Was a procedure done? Was a procedure done?: No Differential Dx Considerations may include: Ingestion of foreign body X-Ray, Labs, Meds, VS Vital Signs Date Time Temp Pulse Resp B/P (MAP) Pulse Ox O2 Delivery O2 Flow Rate FiO2 10/10/24 17:12 97.9 71 16 158/95 (116) 97 97.9 Lab Test 10/10/24 17:42 Range/Units POC Glucose 94 70-106 mg/dl X-Ray, Labs, Meds, VS Comment Patient eloped prior to CT scan Time of 1ST Reevaluation: 18:09 Reevaluation 1ST: Unchanged Patient Education/Counseling: Diagnosis, Treatment, Need For Follow Up Family Education/Counseling: No Family Present SEPSIS Sepsis Screen Date sepsis recognized/suspect: Oct 10, 2024 Time Sepsis recognized/suspect: 1709 Recent Procedure: No On Antibiotic Therapy: No Respiratory Rate >20: No Heart Rate >90: No Temp<36 C (96.8 F) or >38.3 C: No SBP <90 or MAP <65 mmHG: No New Acute Mental Status Change: No Is the patient on CPAP, BIPAP,: No Orders/Vitals/Labs Physician Orders Ct Ab Pel Wo Con-No Oral Or Iv (10/10/24 18:07) Vital Signs Date Time Temp Pulse Resp B/P (MAP) Pulse Ox O2 Delivery O2 Flow Rate FiO2 10/10/24 17:12 97.9 71 16 158/95 (116) 97 97.9 Departure 1 Departure Time of Disposition: 21:24 Impression: Primary Impression: Foreign body ingestion Qualified Codes: T18.9XXA - Foreign body of alimentary tract, part unspecified, initial encounter Disposition: LEFT AWOL/ELOPED Condition: Stable Discharged With: Self Critical Care Note Critical Care Time?: No Stability Stability form required: No Heart Score Heart Score: Heart Score Response (Comments) Value History N/A 0 EKG N/A 0 Age N/A 0 Risk Factors N/A 0 Troponin N/A 0 Total 0 I personally scribed for FABI MCKEON ([email or web address]) on 10/10/24 at 17:47. Electronically submitted by Jaya Woodson ([email or web address]). FABI MCKEON Oct 10, 2024 17:47
== END 2024-10-10 21:13 | disposition left against medical advice (07) ==
LOC: ER 17:04
DX: T18.9XXA Foreign body of alimentary tract, part unspecified, initial encounter (principal); S50.312A Abrasion of left elbow, initial encounter; I10 Essential (primary) hypertension; Z79.899 Other long term (current) drug therapy; Z79.02 Long term (current) use of antithrombotics/antiplatelets; Z79.82 Long term (current) use of aspirin; Z79.890 Hormone replacement therapy; W44.E9XA Other non-magnetic metal objects entering into or through a natural orifice, initial encounter; Y93.89 Activity, other specified; Y92.89 Other specified places as the place of occurrence of the external cause; Y99.8 Other external cause status
CPT/HCPCS: 82947; 82962